=== PATIENT | female | born 1975 | race American Indian/Alaskan Native ===

== ENCOUNTER 2018-02-12 13:47 | Emergency (ER) | payer OTHER ==
[2018-02-12 13:47] VITALS: BMI 34.7
[2018-02-12 13:55] VITALS: RESP 18
[2018-02-12] MEDS ORDERED: Apap-Butalbital-Caffeine 325-50-40mg Tab PO ONE (14:27)
--- NOTE | 2018-02-12 14:34 | ED PDOC ---
Arrival/HPI - General Chief Complaint: ENT Problem Time Seen by Provider: 02/12/18 13:50 Historian: Patient - History of Present Illness Narrative History of Present Illness (Text): 02/12/18 14:29 42 y/o F, an employee of [employer], with no significant past medical history, presents to the ED accompanied by Dr. Harris for evaluation of sinus pressure, right ear pain and rhinorrhea since waking up this morning. Patient states waking up with the symptoms at 4 am and taking Motrin at 7am with improvement to symptoms. Patient reports returning symptoms later at work, which progressively worsened making it difficult to continue work. Patient informs asking Dr. Harris for evaluation, who subsequently brought patient to the ED for medical intervention. Patient denies similar symptoms in the past and states taking pain medication prior to arrival. Patient denies any other associated somatic complaints. Patient denies any fevers, chills, headache, dizziness, chest pain, shortness of breath, dyspnea on exertion, cough, abdominal pain, nausea, vomiting, diarrhea, back pain, neck pain, or any other complaints. Time/Duration: 4-6 hours Symptom Onset: Gradual Symptom Course: Unchanged Quality: Aching Activities at Onset: Light Context: Work Past Medical History - Provider Review Nursing Documentation Reviewed: Yes - Tetanus Immunization Tetanus Immunization: Up to Date - Past Medical History Past Medical History: No Previous - Cardiac Hx Cardiac Disorders: No - Pulmonary Hx Respiratory Disorders: No - Neurological Hx Neurological Disorder: No - HEENT Hx HEENT Disorder: No - Renal Hx Renal Disorder: No - Endocrine/Metabolic Hx Endocrine Disorders: No - Hematological/Oncological Hx Blood Disorders: Yes Hx Anemia: Yes Hx Blood Transfusions: No - Integumentary Hx Dermatological Disorder: Yes Hx Eczema: Yes - Musculoskeletal/Rheumatological Hx Musculoskeletal Disorders: No - Gastrointestinal Hx Gastrointestinal Disorders: No Other/Comment: Umbilical hernia - Genitourinary/Gynecological Hx Genitourinary Disorders: No - Psychiatric Hx Psychophysiologic Disorder: No Hx Depression: No Hx Emotional Abuse: No Hx Physical Abuse: No Hx Substance Use: No - Past Surgical History Past Surgical History: No Previous - Surgical History Hx Orthopedic Surgery: Yes (right knee) Other/Comment: ENDOMETRIOSIS;CYSTECTOMY;UMBILICAL HERNIA REPAIR;RIGHT KNEE ARTHRODCOPY;LEFT ANKLE - Anesthesia Hx Anesthesia: Yes Hx Anesthesia Reactions: No Hx Malignant Hyperthermia: No - Suicidal Assessment Feels Threatened In Home Enviroment: No Family/Social History - Physician Review Nursing Documentation Reviewed: Yes Family/Social History: Unknown Family HX Smoking Status: Former Smoker Hx Alcohol Use: Yes (SOCIALLY) Hx Substance Use: No Hx Substance Use Treatment: No Allergies/Home Meds Allergies/Adverse Reactions: Allergies No Known Allergies Allergy (Verified 10/04/15 07:29) Home Medications: Home Meds Medication Instructions Recorded Confirmed Acetaminophen with Codeine 1 tab PO Q8 PRN 05/24/16 05/24/16 [Tylenol with Codeine #3 Tablet] Ibuprofen [Motrin Tab] 400 mg PO DAILY 05/24/16 05/24/16 Naproxen [Naprosyn] 500 mg PO BID 05/24/16 05/24/16 Review of Systems - Physician Review All systems were reviewed & negative as marked: Yes - Review of Systems Constitutional: absent: Fevers ENT: Rhinorrhea, Sinus Congestion, Other (right eat pain) Respiratory: absent: SOB Cardiovascular: absent: Chest Pain, DONNELLY Gastrointestinal: absent: Abdominal Pain, Diarrhea, Nausea, Vomiting Genitourinary Female: absent: Dysuria, Urine Output Changes Musculoskeletal: absent: Back Pain, Neck Pain Skin: absent: Rash Neurological: absent: Headache, Dizziness Physical Exam Vital Signs Reviewed: Yes Vital Signs Temp Pulse Resp BP Pulse Ox 02/12/18 13:54 99.2 F 84 18 141/89 100 Temperature: Afebrile Blood Pressure: Normal Pulse: Regular Respiratory Rate: Normal Appearance: Positive for: Well-Appearing, Non-Toxic, Comfortable Pain Distress: None Mental Status: Positive for: Alert and Oriented X 3 - Systems Exam Head: Present: Atraumatic, Normocephalic Pupils: Present: PERRL Extroacular Muscles: Present: EOMI Conjunctiva: Present: Normal Ears: Present: Erythema (Right ear.), TM Bulging (Bilaterally. ), Other (Right ear otalgia. Tenderness to palpation to frontal and maxillary sinuses. ). No: Fluid Pharnyx: Present: ERYTHEMA (noted to soft palate). No: EXUDATE Respiratory/Chest: Present: Clear to Auscultation, Good Air Exchange. No: Respiratory Distress, Accessory Muscle Use Cardiovascular: Present: Regular Rate and Rhythm, Normal S1, S2. No: Murmurs Abdomen: No: Tenderness, Distention, Peritoneal Signs Upper Extremity: Present: Normal Inspection. No: Cyanosis, Edema Lower Extremity: Present: Normal Inspection. No: Edema Neurological: Present: GCS=15, CN II-XII Intact, Speech Normal Skin: Present: Warm, Dry, Normal Color. No: Rashes Psychiatric: Present: Alert, Oriented x 3, Normal Insight, Normal Concentration Medical Decision Making ED Course and Treatment: 02/12/18 14:16 Impression: 42 year old female presents to the Emergency department complaining of sinus pressure, right ear pain and rhinorrhea. Differential Diagnosis included but are not limited to: -- Preseptal cellulitis -- Orbital cellulitis -- Mastoiditis -- Otitis externa -- Rhinosinusitis Plan: -- CT of Sinuses -- Labs -- Reglan -- Fiorecit -- Urinalysis -- Reassess and disposition Prior Visits: Notes and results from previous visits were reviewed. Progress Notes: 02/12/18 17:12 CT sinuses negative for preseptal cellulitis/orbital cellulitis. Labs reviewed with no leukocytosis noted. Patient reassessed and feels better. Scripts provided. Return protocol provided. ENT follow up provided. She is stable for discharge. - RAD Interpretation Radiology Orders: 02/12/18 14:17 SINUSES W/O CONTRAST [CT] Stat - Medication Orders Current Medication Orders: Discontinued Medications Metoclopramide HCl (Reglan) 10 mg IVP STAT STA Stop: 02/12/18 14:27 - Scribe Statement The provider has reviewed the documentation as recorded by the Scribe Chacha Liao. All medical record entries made by the Scribe were at my direction and personally dictated by me. I have reviewed the chart and agree that the record accurately reflects my personal performance of the history, physical exam, medical decision making, and the department course for this patient. I have also personally directed, reviewed, and agree with the discharge instructions and disposition. Disposition/Present on Arrival - Present on Arrival Any Indicators Present on Arrival: No History of DVT/PE: No History of Uncontrolled Diabetes: No Urinary Catheter: No History of Decub. Ulcer: No History Surgical Site Infection Following: None - Disposition Have Diagnosis and Disposition been Completed?: Yes Diagnosis: Acute rhinosinusitis, Otitis externa Disposition: HOME/ ROUTINE Disposition Time: 17:10 Patient Plan: Discharge Condition: IMPROVED Discharge Instructions (ExitCare): Sinusitis, Adult (DC), Outer Ear Infection (DC), Sinus Headache (DC) Print Language: OCCITAN Additional Instructions: All medical record entries made by the Scribe were at my direction and personally dictated by me. I have reviewed the chart and agree that the record accurately reflects my personal performance of the history, physical exam, medical decision making, and the department course for this patient. I have also personally directed, reviewed, and agree with the discharge instructions and disposition. Prescriptions: Amoxicillin/Potassium Clav [Amox-Clav 875-125 mg Tablet] 1 each PO BID 10 Days #20 tablet Ondansetron ODT [Zofran ODT] 4 mg PO Q6H #6 odt Referrals: Wilfrid Moffett DO [Staff Provider] - Follow up with primary Forms: [employer] ([place])
[2018-02-12 15:36] LABS: BASO # 0.03 K/mm3 (0.0-2.0); BASO % 0.5 % (0.0-3.0); EOS # 0.3 (0.0-0.7); GRAN # 3.51 (1.4-6.5); GRAN % 54.8 % (50.0-68.0); HEMOGLOBIN 12.6 g/dL (12.0-16.0); LYMPH # 2.1 (1.2-3.4); LYMPH % 32.1 % (22.0-35.0); MEAN CELL VOLUME 84.9 fl (80.0-105.0); MEAN PLATELET VOLUME 9.8 fl (7.0-11.0); MONO # 0.5 (0.1-0.6); MONO % 7.6 % (1.0-6.0); RBC 4.5 10^6/uL (3.5-6.1); WHITE BLOOD COUNT 6.4 10^3/uL (4.5-11.0)
[2018-02-12 15:44] LABS: ALB/GLOB RATIO 1.4 (1.1-1.8); ALBUMIN 4.5 g/dL (3.0-4.8); BLOOD UREA NITROGEN 10 mg/dL (7-21); CALCIUM 9.6 mg/dL (8.4-10.5); GFR NON-AFRICAN AMERICAN > 60
[2018-02-12 15:46] LABS: ALT/SGPT 20 U/L (7-56); AST/SGOT 22 U/L (14-36)
[2018-02-12] MEDS ORDERED: Sodium Chloride 0.9% 1,000 ML IV STA (15:50)
--- NOTE | 2018-02-12 17:04 | CT ---
Date of service: 02/12/2018 PROCEDURE: CT SINUSES WITHOUT CONTRAST HISTORY: b/l ear pain w/ sinus pressure HAs COMPARISON: None available. TECHNIQUE: Contiguous axial CT images of the paranasal sinuses were obtained. Coronal and sagittal reformats were generated. Radiation dose: Total exam DLP = 826.56 mGy-cm. This CT exam was performed using one or more of the following dose reduction techniques: Automated exposure control, adjustment of the mA and/or kV according to patient size, and/or use of iterative reconstruction technique. FINDINGS: FRONTAL SINUSES: Clear. ETHMOID SINUSES: Clear. SPHENOID SINUSES: Clear. MAXILLARY SINUSES: Clear. SINUS DRAINAGE: Osteomeatal complexes, frontal recesses and sphenoethmoid recesses clear. NASAL SEPTUM: No significant deviation. No destructive lesion. MASS: None. SKULL BASE: Unremarkable. TEMPORAL BONES: Middle ears and mastoid grossly unremarkable. OTHER FINDINGS: None. IMPRESSION: Unremarkable non contrast enhanced CT of the sinuses.
[2018-02-12 17:30] VITALS: O2SAT 99
[2018-02-12 17:32] VITALS: BP 116/76; PULSE 71; TEMP 98.7
== END 2018-02-12 17:31 | disposition home or self-care (01) ==
LOC: ED 13:47
DX: J01.90 Acute sinusitis, unspecified (principal); H60.91 Unspecified otitis externa, right ear; Z87.891 Personal history of nicotine dependence
CPT/HCPCS: 70486; 80053; 85025; 96374; 99283; J2765

== ENCOUNTER 2018-03-17 09:40 | Outpatient (CLI) | payer OTHER | END 2018-03-17 09:41 | disposition home or self-care (01) | LOC: RAD 09:40 ==

== ENCOUNTER 2018-07-17 11:54 | Outpatient (CLI) | payer OTHER | END 2018-07-17 11:55 | disposition home or self-care (01) | LOC: RAD 11:54 ==